=== PATIENT | female | born 1970 | race Caucasian/White ===

== ENCOUNTER 2022-01-01 19:30 | Emergency (ER) | payer OTHER ==
[~2022-01-01] VITALS: Ht 165.1 cm; Wt 70.5 kg
[2022-01-01] MEDS ORDERED: DiphenhydrAMINE HCL 25 MG CAPSULE PO ONE (21:00)
[2022-01-01] MEDS ORDERED: PredniSONE 20 MG TABLET PO ONE (21:00)
[2022-01-01] MEDS ORDERED: FAMOTIDINE 20 MG TABLET PO ONE (21:00)
[2022-01-01] MEDS ORDERED: DiphenhydrAMINE HCL 50 MG/ML VIAL IVP ONE (22:45)
[2022-01-02 00:21] VITALS: BP 118/68
== END 2022-01-02 00:20 | disposition home or self-care (01) ==
LOC: EMS 19:34
DX: S20.212A Contusion of left front wall of thorax, initial encounter (principal); T78.40XA Allergy, unspecified, initial encounter; Z88.1 Allergy status to other antibiotic agents; W19.XXXA Unspecified fall, initial encounter; Y93.89 Activity, other specified; Y92.89 Other specified places as the place of occurrence of the external cause; Y99.0 Civilian activity done for income or pay
CPT/HCPCS: 99284; 96374; 71101; J1200; J7512

== ENCOUNTER 2022-01-13 06:39 | Emergency (ER) | payer OTHER ==
[~2022-01-13] VITALS: Ht 167.6 cm; Wt 84.1 kg
[2022-01-13] MEDS ORDERED: ONDANSETRON HCL 4 MG/2 ML VIAL IVP ONE (07:00)
[2022-01-13] MEDS ORDERED: SODIUM CHLORIDE 0.9% 1,000 ML IV ONE (07:00)
[2022-01-13] MEDS ORDERED: FAMOTIDINE 10 MG/ML 2 ML VIAL IVP ONE (07:00)
[2022-01-13] MEDS ORDERED: MAG HYDROX/AL HYDROX/SIMETH 30 ML SUSP UDCUP PO ONE (07:00)
[2022-01-13] MEDS ORDERED: KETOROLAC TROMETHAMINE 30 MG/ML VIAL IVP ONE (07:00)
[2022-01-13 07:32] LABS: BASOPHILS % (AUTO) 0.4 % (0.0-2.0); EOSINOPHILS % (AUTO) 0.7 % (1.0-6.0); HEMATOCRIT 35.1 % (36-46); HEMOGLOBIN 12.2 g/dL (12.0-16.0); LYMPHOCYTES # (AUTO) 1.1 K/uL (1.0-4.8); LYMPHOCYTES % (AUTO) 22.5 % (22.0-44.0); MEAN CORPUSCULAR HEMOGLOBIN 32.4 pg (26.0-34.0); MEAN CORPUSCULAR HGB CONC 34.8 G/dL (31.0-37.0); MEAN CORPUSCULAR VOLUME 93 fL (80-100); MONOCYTES # (AUTO) 0.3 K/uL (0.1-1.0); MONOCYTES % (AUTO) 6.6 % (2.0-9.0); NEUTROPHILS # (AUTO) 3.3 K/uL (1.8-7.7); NEUTROPHILS % (AUTO) 69.8 % (40.0-70.0); PLATELET COUNT (AUTO) 224 K/uL (150-450); RED BLOOD CELL COUNT(AUTO) 3.76 MIL/uL (4.00-5.20); RED CELL DISTRIBUTION WIDTH 16.8 % (11.5-14.5)
[2022-01-13 07:40] LABS: ANION GAP 4 mmol/L (8-16); CALCIUM, TOTAL 9.2 mg/dL (8.8-10.5); CARBON DIOXIDE 31 mmol/L (22-29); CHLORIDE 106 mmol/L (98-107); CREATININE 0.63 mg/dL (0.60-1.30); GLUCOSE,RANDOM 100 mg/dL (70-110); POTASSIUM 3.4 mmol/L (3.5-5.1); SODIUM SERUM 141 mmol/L (136-145); UREA NITROGEN, BLOOD 7 mg/dL (7-18)
[2022-01-13 07:42] LABS: GLOMERULAR FILTR. RATE CALC > 60 mL/min (>60)
[2022-01-13 07:54] LABS: ALANINE AMINOTRANSFERASE 26 U/L (12-78); ALBUMIN 3.9 g/dL (3.4-5.0); ALKALINE PHOSPHATASE 53 U/L (46-116); ASPARTATE AMINOTRANSFERASE 16 U/L (15-37); BILIRUBIN,TOTAL 1.5 mg/dL (0.1-1.0); HCG,QUANTITATIVE 2 mIU/mL (0-6); LIPASE 180 U/L (73-393); TOTAL PROTEIN, SERUM 6.6 g/dL (6.4-8.2)
[2022-01-13] MEDS ORDERED: IOHEXOL 350 MG/ML 100 ML VIAL ONE (08:09)
[2022-01-13] MEDS ORDERED: SODIUM CHLORIDE 0.9% 100 ML ONE (08:09)
[2022-01-13] MEDS ORDERED: PERMETHRIN 1% 60 ML LOTION TP ONE (09:15)
[2022-01-13 10:37] LABS: APPEARANCE,URINE CLEAR (CLEAR); BILIRUBIN,URINE NEGATIVE (NEGATIVE); GLUCOSE, URINE (UA) NEGATIVE (NEGATIVE); KETONES,URINE NEGATIVE (NEGATIVE); LEUKOCYTE ESTERASE ,URINE NEGATIVE (NEGATIVE); NITRATE,URINE NEGATIVE (NEGATIVE); OCCULT BLOOD,URINE NEGATIVE (NEGATIVE); PROTEIN,URINE TRACE mg/dL (NEGATIVE); UROBILINOGEN,URINE <=1.0 mg/dL (<=1.0)
[2022-01-13 10:44] LABS: SPECIFIC GRAVITIY, URINE > 1.050 (1.003-1.030)
[2022-01-13 10:46] VITALS: BP 131/87
[2022-01-13] MEDS ORDERED: ONDA-104 PO (11:05)
== END 2022-01-13 11:23 | disposition home or self-care (01) ==
LOC: EMS 06:42
DX: R10.33 Periumbilical pain (principal); B86 Scabies
CPT/HCPCS: 99285; 74177; 96374; 76700; 96375; 96361; 80053; 81003; 83690; 84702; 85025; 36415; J3490; J1885; J2405; Q9967; J7050

== ENCOUNTER 2022-11-25 13:02 | Emergency (ER) | payer OTHER ==
[~2022-11-25] VITALS: Ht 160 cm; Wt 63.6 kg
[~2022-11-25 13:02] MED LIST: ONDA-104 PO
[2022-11-25 13:05] VITALS: TEMP 98.2
[2022-11-25] MEDS ORDERED: IBUP-1492 PO (15:36)
[2022-11-25 16:13] VITALS: BP 125/89; PULSE 93; RESP 16
== END 2022-11-25 16:13 | disposition home or self-care (01) ==
LOC: EMS 13:02
DX: S42.402A Unspecified fracture of lower end of left humerus, initial encounter for closed fracture (principal); S52.122A Displaced fracture of head of left radius, initial encounter for closed fracture; F41.9 Anxiety disorder, unspecified; F32.A Depression, unspecified; Z98.890 Other specified postprocedural states; Z91.018 Allergy to other foods; Z88.8 Allergy status to other drugs, medicaments and biological substances; W19.XXXA Unspecified fall, initial encounter; Y93.89 Activity, other specified; Y92.89 Other specified places as the place of occurrence of the external cause; Y99.8 Other external cause status
CPT/HCPCS: 99283

== ENCOUNTER → 2022-12-02 | Emergency (ER) | payer OTHER ==
[~2022-12-02] VITALS: Ht 157.5 cm; Wt 63.6 kg
[~2022-12-02] MED LIST changes: +IBUP-1492 PO
[2022-12-02 20:03] VITALS: TEMP 97.8
[2022-12-02 22:37] VITALS: BP 110/66; PULSE 64; RESP 16
== END | disposition still patient (30) ==
LOC: EMS 19:46
DX: S42.402A Unspecified fracture of lower end of left humerus, initial encounter for closed fracture (principal); F41.9 Anxiety disorder, unspecified; F32.A Depression, unspecified; Z91.018 Allergy to other foods; Z88.8 Allergy status to other drugs, medicaments and biological substances; W19.XXXA Unspecified fall, initial encounter; Y93.89 Activity, other specified; Y92.89 Other specified places as the place of occurrence of the external cause; Y99.8 Other external cause status
CPT/HCPCS: 99283

== ENCOUNTER 2024-04-26 18:32 | Emergency (ER) | payer OTHER ==
[~2024-04-26] VITALS: Ht 157.5 cm; Wt 59.0 kg
[2024-04-26] MEDS ORDERED: PRED-729 PO (18:56)
[2024-04-26] MEDS ORDERED: TERB250T90 PO (18:56)
[2024-04-27] MEDS: TraMADol HCL 50 MG TABLET PO ONE (01:29)
[2024-04-27 02:30] VITALS: BP 128/67; PULSE 74; RESP 20; TEMP 98.3; O2SAT 100
== END 2024-04-27 02:51 | disposition home or self-care (01) ==
LOC: EMS 18:54
DX: S20.20XA Contusion of thorax, unspecified, initial encounter (principal); S90.32XA Contusion of left foot, initial encounter; F41.9 Anxiety disorder, unspecified; F32.A Depression, unspecified; Z88.3 Allergy status to other anti-infective agents; W10.9XXA Fall (on) (from) unspecified stairs and steps, initial encounter; Y93.89 Activity, other specified; Y92.89 Other specified places as the place of occurrence of the external cause; Y99.8 Other external cause status
CPT/HCPCS: 71101; 99284